=== PATIENT | female | born 1975 | race Caucasian/White ===

== ENCOUNTER 2018-01-15 08:25 | Emergency (ER) | payer OTHER ==
[~2018-01-15] VITALS: Ht 175.3 cm; Wt 108.9 kg
[~2018-01-15 08:25] MED LIST: ALLEGRA ALLERG180 MG PO; COMPAZINE10 MG PO; CONTRAVE ER 8-1 EACH PO; JANUMET XR 50-1 EAC1 PO; LISINOPRIL20 MG PO; NORCO 5-325 TA1 EACH PO; PROZAC40 MG PO; QSYMIA 7.5 MG-1 EACH PO; VITAMIN D350000 UNIT PO; WELLBUTRIN SR150 MG PO; ZOFRAN ODT4 MG PO
[2018-01-15] MEDS ORDERED: VITAMIN D5000 UNIT PO (08:30)
[2018-01-15] MEDS ORDERED: CALCITRATE200 MG PO (08:30)
[2018-01-15] MEDS ORDERED: PROTONIX40 M2 PO (08:33)
[2018-01-15] MEDS ORDERED: SENNA-DOCUSATE1 EACH PO (09:31)
[2018-01-15] MEDS ORDERED: NORCO 5-325 TA1 EACH PO (09:31)
[2018-01-15 10:21] VITALS: BP 133/80
== END 2018-01-15 10:22 | disposition home or self-care (01) ==
LOC: ER 08:25
DX: S82.492A Other fracture of shaft of left fibula, initial encounter for closed fracture (principal); E11.9 Type 2 diabetes mellitus without complications; Z90.49 Acquired absence of other specified parts of digestive tract; Z88.0 Allergy status to penicillin; Z88.6 Allergy status to analgesic agent; X58.XXXA Exposure to other specified factors, initial encounter; Y93.89 Activity, other specified; Y92.89 Other specified places as the place of occurrence of the external cause; Y99.8 Other external cause status

== ENCOUNTER 2021-03-29 18:10 | Emergency (ER) | payer OTHER ==
[~2021-03-29] VITALS: Ht 177.8 cm; Wt 108.9 kg
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
[~2021-03-29 18:10] MED LIST changes: +CALCITRATE200 MG PO; +PROTONIX40 M2 PO; +SENNA-DOCUSATE1 EACH PO; +VITAMIN D5000 UNIT PO
[2021-03-29] MEDS ORDERED: FLUOXETINE HCL60 MG PO (19:25)
[2021-03-29] MEDS ORDERED: DEXILANT60 MG PO (19:25)
[2021-03-29] MEDS ORDERED: JARDIANCE10 MG PO (19:25)
[2021-03-29] MEDS ORDERED: ADDERALL XR 2020 MG PO (19:25)
[2021-03-29] MEDS ORDERED: XYZAL5 MG PO (19:26)
[2021-03-29] MEDS ORDERED: CRESTOR10 MG PO (19:26)
[2021-03-29] MEDS ORDERED: TRULICITY3 MG/0.5 M SUBQ (19:26)
[2021-03-29] MEDS ORDERED: SUPER THERAVIT1 EACH PO (19:27)
[2021-03-29] MEDS ORDERED: COLACE100 MG PO (19:27)
[2021-03-29 20:07] LABS: ABSOLUTE NEUTROPHILS 5.6 thou/uL (1.4-8.2); HEMATOCRIT 41.2 % (37.0-47.0); HEMOGLOBIN 13.5 gm/dL (12.0-15.0); MCH 27.1 pg (26.0-34.0); MCHC 32.7 g/dL (28.0-37.0); MCV 82.9 fL (80.0-100.0); RBC 4.97 mil/uL (4.20-5.00); RDW 14.9 % (10.5-14.5); WBC 8.6 thou/uL (4.0-11.0)
[2021-03-29 20:31] LABS: CALCIUM 9.2 mg/dL (8.5-10.1); CREATININE 0.9 mg/dL (0.6-1.0); POTASSIUM 3.9 mmol/L (3.5-5.1)
[2021-03-29 20:37] LABS: ATYPICAL LYMPHS 0 %; ATYPICAL MONONUCLEARS 0 %; BLASTS 0 %; IMMATURE MONONUCLEARS 0 %; METAMYELOCYTES 0 %; MYELOCYTES 0 %; NUCLEATED RBCS 0 /100WBC; PLATELET COUNT 211 thou/uL (150-400); PLATELET ESTIMATE NORMAL; PROMYELOCYTES 0 %
[2021-03-29 20:38] LABS: ALBUMIN 3.8 g/dL (3.4-5.0); TOTAL BILIRUBIN 0.3 mg/dL (0.2-1.0); TOTAL PROTEIN 7.6 g/dL (6.4-8.2)
[2021-03-29] MEDS ORDERED: ZANAFLEX4 MG PO (22:41)
[2021-03-29 23:06] VITALS: BP 139/79
== END 2021-03-29 23:08 | disposition home or self-care (01) ==
LOC: ER 18:10
PROVIDERS: Emergency Medicine
DX: S16.1XXA Strain of muscle, fascia and tendon at neck level, initial encounter (principal); S20.212A Contusion of left front wall of thorax, initial encounter; S46.812A Strain of other muscles, fascia and tendons at shoulder and upper arm level, left arm, initial encounter; S29.012A Strain of muscle and tendon of back wall of thorax, initial encounter; E11.9 Type 2 diabetes mellitus without complications; Z79.891 Long term (current) use of opiate analgesic; Z79.84 Long term (current) use of oral hypoglycemic drugs; Z79.899 Other long term (current) drug therapy; Z88.6 Allergy status to analgesic agent; Z88.0 Allergy status to penicillin; V43.53XA Car driver injured in collision with pick-up truck in traffic accident, initial encounter; Y93.19 Activity, other involving water and watercraft; Y92.89 Other specified places as the place of occurrence of the external cause; Y99.8 Other external cause status